=== PATIENT | male | born 1960 | race American Indian/Alaskan Native ===

== ENCOUNTER 2017-09-07 19:11 | Emergency (ER) | payer MEDICARE ==
--- NOTE | 2017-09-07 22:26 | Cat Scan Report ---
FINAL REPORT EXAM: CT HEAD/BRAIN WO CON HISTORY: dizziness TECHNIQUE: CT head without contrast PRIORS: Comparison is dated August 13, 2017 FINDINGS: Large solid mass at the skullbase is again identified. Exact borders cannot be well measured however appears grossly unchanged from the prior exam. No evidence for hydrocephalus. No acute parenchymal abnormalities are otherwise in identified. No acute intra or extra-axial hemorrhage seen. Overall stable appearance from previous study. IMPRESSION: Large mass at the skullbase with bony erosive change. No significant change seen from prior exam on noncontrast CT overall stable appearance.
[2017-09-07 22:31] LABS: Basophils % (Auto) 0.6 % (0.0-1.8); Eosinophils % (Auto) 2.7 % (0.0-4.3); Hematocrit 39.7 % (35.5-45.6); Hemoglobin 12.7 gm/dl (11.8-15.2); Mean Corpuscular HGB Conc 32 % (32-34); Mean Corpuscular Hemoglobin 26 pg (28-32); Mean Corpuscular Volume 82 fl (84-94); Platelet Count 182 K/mm3 (140-440); Red Blood Count 4.87 M/mm3 (3.65-5.03); Red Cell Distribution Width 16.1 % (13.2-15.2); White Blood Count 8.9 K/mm3 (4.5-11.0)
[2017-09-07 23:02] LABS: Anion Gap 22 mmol/L; BUN/Creatinine Ratio 18; Blood Urea Nitrogen 11 mg/dL (9-20); Calcium 9.3 mg/dL (8.4-10.2); Carbon Dioxide 22 mmol/L (22-30); Chloride 103.6 mmol/L (98-107); Glucose 97 mg/dL (75-100); Potassium 4.7 mmol/L (3.6-5.0); Sodium 143 mmol/L (137-145)
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
[2017-09-08 00:10] LABS: INR 1.03 (0.87-1.13); Partial Thromboplastin Time 29.4 Sec. (24.2-36.6)
[2017-09-08] MEDS ORDERED: DILAUDID IM ONE (01:17)
[2017-09-08 05:57] VITALS: BP 136/76
--- NOTE | 2017-09-08 08:07 | Cat Scan Report ---
FINAL REPORT EXAM: CT ABDOMEN PELVIS WO CON HISTORY: abdominal pain TECHNIQUE: Routine axial imaging was obtained of the abdomen and pelvis without oral or IV contrast. Comparison is made to the study of 07/13/2015. FINDINGS: The lung bases are clear. The gallbladder has been removed. The biliary tree appears normal. The liver, pancreas, spleen, and adrenal glands appear normal. The kidneys show no evidence of stones or hydronephrosis. There is a 1 cm cortical cyst in left kidney. The bowel loops are normal in caliber and course. The appendix is not enlarged. There is a filter deployed in the IVC. There is no evidence of free fluid or adenopathy. In the pelvis there is considerable streak artifact from hardware in both proximal femora. The prostate and bladder difficult to assess. The skeletal structures otherwise reveal arthritic changes in the lumbar spine. IMPRESSION: Cholecystectomy. No acute process in the abdomen and pelvis. 10 millimeter cortical cyst in left kidney.
== END 2017-09-08 07:46 | disposition home or self-care (01) ==
LOC: ED 19:11
DX: G93.9 Disorder of brain, unspecified (principal); N28.1 Cyst of kidney, acquired; R10.9 Unspecified abdominal pain; R42 Dizziness and giddiness; R79.1 Abnormal coagulation profile
CPT/HCPCS: 36415; 70450; 74176; 80048; 83735; 85025; 85610; 85730; 96372; 99285; J1170

== ENCOUNTER 2018-01-18 12:47 | Emergency (ER) | payer MEDICARE ==
[2018-01-18] MEDS ORDERED: CATAPRES ONE (13:02)
[2018-01-18] MEDS ORDERED: CATAPRES PO ONE (13:04)
[2018-01-18] MEDS ORDERED: KEPPRA 1,000 MG/NS 0.75% 100ML 1,000 MG/100 ML BAG IV ONE (15:18)
[2018-01-18] MEDS ORDERED: NORMODYNE IV ONE (15:19)
[2018-01-18 15:51] LABS: Mean Corpuscular HGB Conc 30 % (32-34); Mean Corpuscular Hemoglobin 26 pg (28-32); Mean Corpuscular Volume 88 fl (84-94); Platelet Count 184 K/mm3 (140-440); Red Blood Count 4.82 M/mm3 (3.65-5.03); Red Cell Distribution Width 16.6 % (13.2-15.2)
[2018-01-18 15:54] LABS: Basophils % (Auto) 0.6 % (0.0-1.8); Eosinophils % (Auto) 3.9 % (0.0-4.3); Hematocrit 42.5 % (35.5-45.6); Hemoglobin 12.5 gm/dl (11.8-15.2); Lymphocytes # (Auto) 2.3 K/mm3 (1.2-5.4); Lymphocytes % (Auto) 27.7 % (13.4-35.0); Monocytes % (Auto) 7.7 % (0.0-7.3)
[2018-01-18 15:55] LABS: BUN/Creatinine Ratio 17; Blood Urea Nitrogen 15 mg/dL (9-20); Calcium 9.2 mg/dL (8.4-10.2); Eosinophils # (Auto) 0.3 K/mm3 (0.0-0.4); Hemolysis Index 75; Monocytes # (Auto) 0.6 K/mm3 (0.0-0.8)
[2018-01-18] MEDS ORDERED: PERCOCET 5/325 PO ONE (19:16)
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
[2018-01-18 19:47] VITALS: BP 133/80
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
== END 2018-01-18 22:15 | disposition home or self-care (01) ==
LOC: ED 12:47
DX: M79.604 Pain in right leg (principal); R56.9 Unspecified convulsions; I10 Essential (primary) hypertension; E11.9 Type 2 diabetes mellitus without complications; Z91.018 Allergy to other foods; Z79.01 Long term (current) use of anticoagulants
CPT/HCPCS: 36415; 73552; 80048; 85025; 96374; 96375; 99284; J1953

== ENCOUNTER 2020-09-06 19:28 | Emergency (ER) | payer MEDICARE ==
[2020-09-06] MEDS ORDERED: levETIRAcetam 1000 MG/NS 0.75% 1,000 MG/100 ML BAG IV ONE (19:42)
[2020-09-06] MEDS ORDERED: ACETAMINOPHEN 500 MG TAB PO ONE (19:43)
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
[2020-09-07 00:10] VITALS: BP 173/118
== END 2020-09-07 01:31 | disposition home or self-care (01) ==
LOC: ED 19:28
DX: G40.909 Epilepsy, unspecified, not intractable, without status epilepticus (principal); I16.0 Hypertensive urgency; E11.9 Type 2 diabetes mellitus without complications; Z98.890 Other specified postprocedural states; Z79.2 Long term (current) use of antibiotics; Z79.899 Other long term (current) drug therapy; Z91.018 Allergy to other foods
CPT/HCPCS: 96365; 96375; 99283; J1953

== ENCOUNTER 2021-03-06 13:45 | Emergency (ER) | payer MEDICARE ==
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
[2021-03-06 14:45] VITALS: BP 199/119
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
== END 2021-03-06 16:38 | disposition home or self-care (01) ==
LOC: ED 13:45
DX: S09.90XA Unspecified injury of head, initial encounter (principal); S16.1XXA Strain of muscle, fascia and tendon at neck level, initial encounter; S40.011A Contusion of right shoulder, initial encounter; S80.11XA Contusion of right lower leg, initial encounter; I10 Essential (primary) hypertension; R56.9 Unspecified convulsions; Z98.890 Other specified postprocedural states; Z79.899 Other long term (current) drug therapy; Z91.018 Allergy to other foods; X58.XXXA Exposure to other specified factors, initial encounter; Y93.89 Activity, other specified; Y92.410 Unspecified street and highway as the place of occurrence of the external cause; Y99.8 Other external cause status
CPT/HCPCS: 70450; 72125

== ENCOUNTER 2021-07-16 11:44 | Outpatient (CLI) | payer MEDICARE ==
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
== END 2021-07-16 11:45 | disposition home or self-care (01) ==
LOC: XRAY 11:44
PROVIDERS: ATTEND Physician Assistant Surgical
DX: M54.5 Low back pain (principal)
CPT/HCPCS: 72100